=== PATIENT | female | born 1975 | race Caucasian/White ===

== ENCOUNTER → 2017-01-10 | Outpatient (CLI) | payer BC ==
[~2017-01-10] MED LIST: Iopamidol 755 MG/ML 500 ML Multipack Bottle IVPUSH STA
--- NOTE | 2017-01-11 14:14 | CT ---
EXAMINATION: CTA of the left upper extremity HISTORY: Left upper extremity pain and swelling COMPARISON: None TECHNIQUE: Axial CT images obtained through the left upper extremity following the administration of a total of 130 mL of Isovue-370. Coronal and sagittal reconstructions obtained. FINDINGS: The visualized lung apices appear grossly clear. The thoracic aorta is normal in caliber. The visualized main pulmonary arteries appear patent. There is a three-vessel origin and the aortic arch. The left subclavian artery appears patent within the arm is in the lower position. There is mi ld/moderate narrowing of the left subclavian artery when the left arm is in the upright position. Th e narrowing occurs between the first rib and the clavicle. Otherwise the left axillary and brachial artery appear normal. The visualized osseous structures are unremarkable. There is a 2 x 1.5 cm left adrenal nodule. IMPRESSION: 1. There is mild to moderate narrowing of the left subclavian artery, when the arm is in the upright position. This occurs between the clavicle and the first rib and is consistent with thoracic outlet syndrome. 2. There is an indeterminate 2 x 1.5 cm left adrenal nodule. Follow-up with adrenal protocol MRI may be beneficial.
== END ==
LOC: MW.DI 15:59
PROVIDERS: ATTEND Family Medicine
DX: G54.0 Brachial plexus disorders (principal)
CPT/HCPCS: 73206; Q9967

== ENCOUNTER 2018-04-10 06:19 | Emergency (ER) | payer BC ==
[2018-04-10] MEDS ORDERED: Diphtheria,Pertussis(Acell),Tetanus Vaccine 0.5 ML Syringe IM ONE (06:52)
--- NOTE | 2018-04-10 06:52 | EDM.PDOC ---
ED HPI GENERAL MEDICAL PROBLEM - General Chief Complaint: Head Injury Stated Complaint: CUTS ON HEAD Time Seen by Provider: 04/10/18 06:52 Source of Information: Reports: Patient - History of Present Illness INITIAL COMMENTS - FREE TEXT/NARRATIVE: HISTORY AND PHYSICAL: History of present illness: [Patient presents with right ear pain, requests tetanus shot 2 days prior to arrival she on Monday she was continuing her [employer] style vehicle she had open the hatchback and lower down to her head that did not fall on her head she has a small 3 mm laceration that is healing nearly healed, she complains of left ear pain that began yesterday No fever nausea vomiting diarrhea constipation chest pain shortness breath headache dizziness or palpitation no bowel or urine symptoms no loss of consciousness She states that there was no obvious injury she did not even realize that the hatchback head came down on her head as it lowered soft labor she did sustain a small laceration ] Review of systems: As per history of present illness and below otherwise all systems reviewed and negative. Past medical history: As per history of present illness and as reviewed below otherwise noncontributory. Surgical history: As per history of present illness and as reviewed below otherwise noncontributory. Social history: No reported history of drug or alcohol abuse. Family history: As per history of present illness and as reviewed below otherwise noncontributory. Physical exam: HEENT: Atraumatic, normocephalic, pupils reactive, negative for conjunctival pallor or scleral icterus, mucous membranes moist, throat clear, neck supple, nontender, trachea midline. Right see SCM is mildly spasm with palpation and right tympanic membrane has a serous effusion no loss of landmarks no mastoid tenderness no vertebral point tenderness left ear is clear Lungs: Clear to auscultation, breath sounds equal bilaterally, chest nontender. Heart: S1S2, regular, negative for clicks, rubs, or JVD. Abdomen: Soft, nondistended, nontender. Negative for masses or hepatosplenomegaly. Negative for costovertebral tenderness. Pelvis: Stable nontender. Genitourinary: Deferred. Rectal: Deferred. Extremities: Atraumatic, negative for cords or calf pain. Neurovascular unremarkable. Neuro: Awake, alert, oriented. Cranial nerves II through XII unremarkable. Cerebellum unremarkable. Motor and sensory unremarkable throughout. Exam nonfocal. Small 3 mm healing laceration for tax no redness warmth or tenderness no exudate for culture Diagnostics: [Clinical ] Therapeutics: [No status is updated Flexeril 10 mg by mouth 3 times a day #30 no refill ] Impression: [Small subcentimeter laceration no sutures required healing on its own Tetanus status is updated Mild SCM spasm on the right ] Definitive disposition and diagnosis as appropriate pending reevaluation and review of above. Head Pain Score (Numeric/FACES): 8 - Related Data Allergies Allergy/AdvReac Type Severity Reaction Status Date / Time cephalexin monohydrate Allergy Rash Verified 04/10/18 06:31 [From Keflex] Home Meds: Home Meds . 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: - Infectious Disease History Infectious Disease History: Reports: Chicken Pox - Past Surgical History HEENT Surgical History: Reports: Myringotomy w Tube(s) GI Surgical History: Reports: Hernia Repair/Other Social & Family History - Tobacco Use Smoking Status *Q: Former Smoker Used Tobacco, but Quit: Yes Month/Year Tobacco Last Used: 1997 - Caffeine Use Caffeine Use: Reports: Coffee - Recreational Drug Use Recreational Drug Use: No ED ROS GENERAL - Review of Systems Review Of Systems: See Below ED EXAM, HEAD INJURY - Physical Exam Exam: See Below Course - Vital Signs Last Recorded V/S: Last Vital Signs Temp 97.3 F 04/10/18 06:28 Pulse 75 04/10/18 06:28 Resp 12 04/10/18 06:28 BP 136/89 04/10/18 06:28 Pulse Ox 99 04/10/18 06:28 - Orders/Labs/Meds Orders: Active Orders 24 hr Category Date Time Status Vaccines to be Administered [RC] PER UNIT ROUTINE Care 04/10/18 06:52 Ordered Diphth,Pertuss(Acell),Tet Vac [Adacel] Med 04/10/18 06:52 Once 0.5 ml IM .ONCE ONE Departure - Departure Time of Disposition: 06:56 Disposition: Home, Self-Care 01 Condition: Good Clinical Impression: Laceration - Discharge Information Referrals: PCP,None [Primary Care Provider] - Forms: ED Department Discharge Additional Instructions: The following information is given to patients seen in the emergency department who are being discharged to home. This information is to outline your options for follow-up care. We provide all patients seen in our emergency department with a follow-up referral. The need for follow-up, as well as the timing and circumstances, are variable depending upon the specifics of your emergency department visit. If you don't have a primary care physician on staff, we will provide you with a referral. We always advise you to contact your personal physician following an emergency department visit to inform them of the circumstance of the visit and for follow-up with them and/or the need for any referrals to a consulting specialist. The emergency department will also refer you to a specialist when appropriate. This referral assures that you have the opportunity for follow-up care with a specialist. All of these measure are taken in an effort to provide you with optimal care, which includes your follow-up. Under all circumstances we always encourage you to contact your private physician who remains a resource for coordinating your care. When calling for follow-up care, please make the office aware that this follow-up is from your recent emergency room visit. If for any reason you are refused follow-up, please contact the [facility] emergency department at and asked to speak to the emergency department charge nurse. - My Orders Last 24 Hours: My Active Orders 04/10/18 06:52 Vaccines to be Administered [RC] PER UNIT ROUTINE Diphth,Pertuss(Acell),Tet Vac [Adacel] 0.5 ml IM .ONCE ONE - Assessment/Plan Last 24 Hours: My Active Orders 04/10/18 06:52 Vaccines to be Administered [RC] PER UNIT ROUTINE Diphth,Pertuss(Acell),Tet Vac [Adacel] 0.5 ml IM .ONCE ONE
[2018-04-10 09:43] VITALS: BP 127/79
== END 2018-04-10 07:47 | disposition home or self-care (01) ==
LOC: MW.ED 06:19
DX: S01.01XA Laceration without foreign body of scalp, initial encounter (principal); Z23 Encounter for immunization; Z88.1 Allergy status to other antibiotic agents; Z87.891 Personal history of nicotine dependence; W22.8XXA Striking against or struck by other objects, initial encounter
CPT/HCPCS: 90471; 90715; 99283; 99283-25

== ENCOUNTER 2018-04-13 13:15 | Emergency (ER) | payer BC ==
[2018-04-13 13:23] VITALS: BP 153/93
[2018-04-13] MEDS ORDERED: Ketorolac 60 MG/2 ML SDV IM ONE (13:33)
--- NOTE | 2018-04-13 13:33 | EDM.PDOC ---
ED HPI GENERAL MEDICAL PROBLEM - General Chief Complaint: Headache Stated Complaint: HEADACHES Time Seen by Provider: 04/13/18 13:16 Source of Information: Reports: Patient History Limitations: Reports: No Limitations - History of Present Illness INITIAL COMMENTS - FREE TEXT/NARRATIVE: History of present illness: []Patient had the trunk of a car coming down on her head 6 days ago and since then has been feeling pressure in her sinuses and head. He was in the ED after the incident and was given muscle relaxants but she has not taken any this time. She is not had any visual changes, nausea, vomiting or severe headaches however she does have pressure throughout her head and her sinuses, especially on her left maxillary sinus Review of systems: As per history of present illness and below otherwise all systems reviewed and negative. Past medical history: As per history of present illness and as reviewed below otherwise noncontributory. Surgical history: As per history of present illness and as reviewed below otherwise noncontributory. Social history: No reported history of drug or alcohol abuse. Family history: As per history of present illness and as reviewed below otherwise noncontributory. Physical exam: General: Well developed, well nourished in NAD HEENT: Atraumatic, normocephalic, pupils reactive, negative for conjunctival pallor or scleral icterus, mucous membranes moist, throat clear, neck supple, no rigidity nontender, trachea midline. TMs no hemotympanum there is old scarring noted bilaterally. No sinus tenderness to palpation Lungs: Clear to auscultation, breath sounds equal bilaterally, chest nontender. Heart: S1S2, regular, negative for clicks, rubs, or JVD. Abdomen: Soft, nondistended, nontender. Negative for masses or hepatosplenomegaly. Negative for costovertebral tenderness. Pelvis: Stable nontender. Genitourinary: Deferred. Rectal: Deferred. Extremities: Atraumatic, negative for cords or calf pain. Neurovascular unremarkable. Neuro: Awake, alert, oriented. Cranial nerves II through XII unremarkable. Cerebellum unremarkable. Motor and sensory unremarkable throughout. Exam nonfocal. Diagnostics: []CT scan, declined by patient Therapeutics: []Toradol given ice pack with improvement of headache Impression: []Post concussive syndrome Plan: []Ice, Aleve, use muscle relaxants as prescribed on prior ED visit. Keep appointment on April 23 as scheduled with your primary care doctor return to ER sooner if symptoms change or worsen. Definitive disposition and diagnosis as appropriate pending reevaluation and review of above. headache Pain Score (Numeric/FACES): 8 - Related Data Allergies Allergy/AdvReac Type Severity Reaction Status Date / Time cephalexin monohydrate Allergy Rash Verified 04/13/18 13:20 [From Keflex] Home Meds: Home Meds . 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: - Infectious Disease History Infectious Disease History: Reports: Chicken Pox - Past Surgical History HEENT Surgical History: Reports: Myringotomy w Tube(s) GI Surgical History: Reports: Hernia Repair/Other Social & Family History - Caffeine Use Caffeine Use: Reports: Coffee ED ROS GENERAL - Review of Systems Review Of Systems: See Below (See history of present illness) ED EXAM, HEAD INJURY - Physical Exam Exam: See Below (See history of present illness) Course - Vital Signs Last Recorded V/S: Last Vital Signs Temp 98.8 F 04/13/18 13:21 Pulse 81 04/13/18 13:21 Resp 18 04/13/18 13:21 BP 153/93 H 04/13/18 13:21 Pulse Ox 100 04/13/18 13:21 - Orders/Labs/Meds Meds: Medications Discontinued Medications Generic Name Dose Route Start Last Admin Trade Name Freq PRN Reason Stop Dose Admin Ketorolac Tromethamine 60 mg 04/13/18 13:33 04/13/18 13:47 Toradol IM 04/13/18 13:34 60 mg ONETIME ONE Administration Departure - Departure Time of Disposition: 14:53 Disposition: Home, Self-Care 01 Condition: Good Clinical Impression: Post concussion syndrome - Discharge Information Instructions: Post-Concussion Syndrome, [id number] Referrals: PCP,None [Primary Care Provider] - Forms: ED Department Discharge Additional Instructions: The following information is given to patients seen in the emergency department who are being discharged to home. This information is to outline your options for follow-up care. We provide all patients seen in our emergency department with a follow-up referral. The need for follow-up, as well as the timing and circumstances, are variable depending upon the specifics of your emergency department visit. If you don't have a primary care physician on staff, we will provide you with a referral. We always advise you to contact your personal physician following an emergency department visit to inform them of the circumstance of the visit and for follow-up with them and/or the need for any referrals to a consulting specialist. The emergency department will also refer you to a specialist when appropriate. This referral assures that you have the opportunity for follow-up care with a specialist. All of these measure are taken in an effort to provide you with optimal care, which includes your follow-up. Under all circumstances we always encourage you to contact your private physician who remains a resource for coordinating your care. When calling for follow-up care, please make the office aware that this follow-up is from your recent emergency room visit. If for any reason you are refused follow-up, please contact the Emergency Department at and asked to speak to the emergency department charge nurse. Primary Care [address] [place] [id number]
== END 2018-04-13 15:01 | disposition home or self-care (01) ==
LOC: MW.ED 13:15
DX: F07.81 Postconcussional syndrome (principal); Z88.1 Allergy status to other antibiotic agents
CPT/HCPCS: 96372; 99283; J1885